=== PATIENT | female | born 1980 | race Caucasian/White ===

== ENCOUNTER 2019-08-09 18:03 | Emergency (ER) | payer OTHER ==
[~2019-08-09] VITALS: Ht 157.5 cm; Wt 88.0 kg
[~2019-08-09 18:03] MED LIST: BENADRYL25 MG PO; FLEXERIL PO; LIORESAL 10 MG10 MG PO; MEDROLDOSEPACK PO; TRAMADOL 50 MG50 MG PO
[2019-08-09] MEDS ORDERED: FLEXERIL PO (18:16)
[2019-08-09 18:33] LABS: URINE BILIRUBIN NEGATIVE (Negative); URINE BLOOD NEGATIVE (Negative); URINE CLARITY CLEAR; URINE COLOR YELLOW; URINE GLUCOSE-RANDOM NEGATIVE (Negative); URINE KETONES NEGATIVE (Negative); URINE LEUKOCYTES-REFLEX NEGATIVE (Negative); URINE NITRITE-REFLEX NEGATIVE (Negative); URINE PROTEIN NEGATIVE (Negative); URINE SPECIFIC GRAVITY 1.025 (1.005-1.030); URINE UROBILINOGEN 0.2 E.U./dl (0.2-1.0)
[2019-08-09 19:00] LABS: ABSOLUTE EOSINOPHILS 0.2 thou/uL (0.0-0.7); ABSOLUTE LYMPHOCYTES 3.1 thou/uL (0.8-5.3); ABSOLUTE MONOCYTES 0.6 thou/uL (0.0-1.2); ABSOLUTE NEUTROPHILS 5.6 thou/uL (1.6-8.1); BASOPHILS 0.5 %; EOSINOPHILS 1.9 %; HEMATOCRIT 40.5 % (37.0-47.0); HEMOGLOBIN 13.8 gm/dL (12.0-15.0); LYMPHOCYTES 32.5 %; MCH 31.3 pg (26.0-34.0); MCHC 34.2 g/dL (28.0-37.0); MCV 91.8 fL (80.0-100.0); MONOCYTES 5.9 %; MPV 7.6 fl. (7.2-11.1); NUCLEATED RBCS 0 /100WBC; PLATELET COUNT* 357 thou/uL (150-400); POLYS 59.2 %; RBC 4.41 mil/uL (4.20-5.00); RDW-CV 12.6 % (10.5-14.5); WBC 9.4 thou/uL (4.0-11.0)
[2019-08-09 19:09] LABS: CALCIUM 9.2 mg/dL (8.5-10.1); CREATININE 0.8 mg/dL (0.6-1.3)
[2019-08-09 19:10] LABS: POTASSIUM 4.2 mmol/L (3.5-5.1)
[2019-08-09 19:13] LABS: ALBUMIN 3.9 g/dL (3.4-5.0); TOTAL BILIRUBIN 0.2 mg/dL (<0.1-1.0); TOTAL PROTEIN 8.3 g/dL (6.4-8.2)
[2019-08-09] MEDS ORDERED: MEDROLDOSEPACK PO (20:17)
[2019-08-09] MEDS ORDERED: ONDANSETRON HCL4 M2 PO (20:25)
[2019-08-09] MEDS ORDERED: ACETAMINOPHEN-1 EAC1 PO (20:25)
[2019-08-09 20:34] VITALS: BP 136/79
== END 2019-08-09 20:36 | disposition home or self-care (01) ==
LOC: M.ERS 18:03
PROVIDERS: Nurse Practitioner Family
DX: M54.41 Lumbago with sciatica, right side (principal); N83.202 Unspecified ovarian cyst, left side; Z90.711 Acquired absence of uterus with remaining cervical stump; Z98.890 Other specified postprocedural states; Z88.5 Allergy status to narcotic agent

== ENCOUNTER 2020-01-24 18:06 | Emergency (ER) | payer OTHER ==
[~2020-01-24] VITALS: Ht 157.5 cm; Wt 90.7 kg
[~2020-01-24 18:06] MED LIST changes: +ACETAMINOPHEN-1 EAC1 PO; +ONDANSETRON HCL4 M2 PO
[2020-01-24] MEDS ORDERED: TRAMADOL 50 MG50 MG PO ×2 (18:13→20:27)
[2020-01-24] MEDS ORDERED: IBU800 MG PO (18:14)
[2020-01-24 21:00] VITALS: BP 135/77
== END 2020-01-24 21:00 | disposition home or self-care (01) ==
LOC: M.ERS 18:06
DX: S93.492A Sprain of other ligament of left ankle, initial encounter (principal); Z90.711 Acquired absence of uterus with remaining cervical stump; Z88.5 Allergy status to narcotic agent; X50.1XXA Overexertion from prolonged static or awkward postures, initial encounter; Y93.89 Activity, other specified; Y92.89 Other specified places as the place of occurrence of the external cause; Y99.8 Other external cause status